=== PATIENT | male | born 1980 | race Hispanic/Latino ===

== ENCOUNTER 2022-04-24 16:45 | Emergency (ER) | payer BC ==
[~2022-04-24] VITALS: Ht 172.7 cm; Wt 99.8 kg
[2022-04-24] MEDS ORDERED: DIPHTH/TETANUS/ACEL. PERTUSSIS 0.5 ML SYR IM ONE (17:15)
[2022-04-24] MEDS ORDERED: TETANUS/DIPHTHERIA TOX ADULT 0.5 ML SYR ONE (17:40)
== END 2022-04-24 17:15 | disposition home or self-care (01) ==
LOC: ER 16:53
DX: S01.112A Laceration without foreign body of left eyelid and periocular area, initial encounter (principal); W20.8XXA Other cause of strike by thrown, projected or falling object, initial encounter; Y92.89 Other specified places as the place of occurrence of the external cause; I10 Essential (primary) hypertension
CPT/HCPCS: 90714; 99283